=== PATIENT | female | born 1970 | race Caucasian/White ===

== ENCOUNTER 2018-03-28 13:08 | Emergency (ER) | payer OTHER, SELFPAY ==
[2018-03-28 13:34] VITALS: TEMP 98.3
[2018-03-28 15:00] LABS: SQUAMOUS EPITHIAL 3 /hpf (0-5); URINE BILIRUBIN NEGATIVE (NEGATIVE); URINE BLOOD 3+ (NEGATIVE); URINE CLARITY Clear (Clear); URINE COLOR Red (YELLOW); URINE GLUCOSE (UA) NORMAL (Normal); URINE LEUKOCYTE ESTERASE TRACE Leu/uL (Negative); URINE PROTEIN 1+ mg/dL (NEGATIVE); URINE UROBILINOGEN NORMAL mg/dL (0.2-1.0)
[2018-03-28 15:02] LABS: HCG,QUALITATIVE URINE NEGATIVE (NEGATIVE)
[2018-03-28] MEDS ORDERED: Sodium Chloride 0.9% 1,000 ML IV ONE (15:26)
--- NOTE | 2018-03-28 15:31 | C.PDOC ---
History Of Present Illness 47 year old female presents to the ED for evaluation of irregular menstrual period for the past three months. Patient states she started having heavy bleeding yesterday, requiring the use of multiple pads. Patient denies fever, chills, weakness, dizziness, abdominal pain, nausea, vomiting, diarrhea, dysuria. Ambulatory in Ed with stable gait, not in any apparent distress. Time Seen by Provider: 03/28/18 14:33 Chief Complaint (Nursing): Female Genitourinary History Per: Patient History/Exam Limitations: no limitations Onset/Duration Of Symptoms: Days Current Symptoms Are (Timing): Still Present Additional History Per: Patient Abnormal Vaginal Bleeding: Yes Past Medical History Reviewed: Historical Data, Nursing Documentation, Vital Signs Vital Signs: Last Vital Signs Temp 98.3 F 03/28/18 13:31 Pulse 93 H 03/28/18 13:31 Resp 18 03/28/18 13:31 BP 129/86 03/28/18 15:16 Pulse Ox 100 03/28/18 13:31 - Medical History PMH: No Chronic Diseases Surgical History: No Surg Hx Family History: States: Unknown Family Hx - Social History Hx Alcohol Use: No Hx Substance Use: No - Immunization History Hx Tetanus Toxoid Vaccination: No Hx Influenza Vaccination: No Hx Pneumococcal Vaccination: No Review Of Systems Constitutional: Negative for: Fever, Chills Gastrointestinal: Negative for: Nausea, Vomiting, Abdominal Pain, Diarrhea Genitourinary: Positive for: Vaginal Bleeding. Negative for: Dysuria Neurological: Negative for: Weakness, Numbness, Dizziness Physical Exam - Physical Exam Appears: Non-toxic, No Acute Distress Skin: Normal Color, Warm, Dry Head: Normacephalic Eye(s): bilateral: PERRL Nose: No Flaring Oral Mucosa: Moist Neck: Trachea Midline, Supple Cardiovascular: Rhythm Regular, No Murmur, No JVD Respiratory: No Rales, No Rhonchi, No Stridor, No Wheezing Gastrointestinal/Abdominal: Soft, No Tenderness, No Distention, No Guarding, No Rebound Back: No CVA Tenderness Extremity: Normal ROM, Capillary Refill (less than 2 seconds ), No Swelling Neurological/Psych: Oriented x3, Normal Speech ED Course And Treatment - Laboratory Results Result Diagrams: 03/28/18 16:10 03/28/18 16:10 Lab Results: Urine Color Red (YELLOW) 03/28/18 14:43 Urine Clarity Clear (Clear) 03/28/18 14:43 Urine pH 6.0 (5.0-8.0) 03/28/18 14:43 Ur Specific [place] 1.005 (1.003-1.030) 03/28/18 14:43 Urine Protein 1+ mg/dL (NEGATIVE) H 03/28/18 14:43 Urine Glucose (UA) Normal mg/dL (Normal) 03/28/18 14:43 Urine Ketones Negative mg/dL (NEGATIVE) 03/28/18 14:43 Urine Blood 3+ (NEGATIVE) H 03/28/18 14:43 Urine Nitrate Negative (NEGATIVE) 03/28/18 14:43 Urine Bilirubin Negative (NEGATIVE) 03/28/18 14:43 Urine Urobilinogen Normal mg/dL (0.2-1.0) 03/28/18 14:43 Ur Leukocyte Esterase Trace Vahe/uL (Negative) 03/28/18 14:43 Urine WBC (Auto) 5 /hpf (0-5) 03/28/18 14:43 Urine RBC (Auto) 1081 /hpf (0-3) H 03/28/18 14:43 Ur Squamous Epith Cells 3 /hpf (0-5) 03/28/18 14:43 Urine HCG, Qual Negative (NEGATIVE) 03/28/18 14:43 Urine HCG, Qual Negative (NEGATIVE) 03/28/18 14:43 Lab Interpretation: Normal Urine POC: Negative O2 Sat by Pulse Oximetry: 100 (on RA ) Pulse Ox Interpretation: Normal Progress Note: Bloodwork, urinalysis, Pelvic Ultrasound ordered and reviewed. IV Fluids given. Pt was OBS in ED for 2 hours and remained stable. On re-eval, afebrile, heodynamicaly stable. non-toxic. Ambulatory in ED with stable gait. neck: Supple, (-) JVD. CVS: (+)S1S2, reg. Abd: soft, (-) guarding, (-) rebound. back: (-) CVA tenderness. Blood work review, appears normal, no evidence of anemia. UA-normal, preg (-). US results review- no acute abnormalities noted. Pt has clinical findings c/w DUB. Pt advised. ref. to F/u with ACUTE COORDINATOR in 2-3 days for re-evaluation. return to ED if any worsening or new changes. Disposition Counseled Patient/Family Regarding: Studies Performed, Diagnosis, Need For Followup - Disposition [facility] Disposition: HOME/ ROUTINE Disposition Time: 17:34 Condition: STABLE Additional Instructions: Encourage fluids Follow up with ACUTE COORDINATOR in 1-2 days for re-evaluation. return to ED if any worsening or new changes. Instructions: Heavy Periods Forms: [employer] ([place]) Print Language: PORTUGUESE - Clinical Impression Clinical Impression: DUB (dysfunctional uterine bleeding) - PA / LENS CUTTER / Resident Statement MD/DO has reviewed & agrees with the documentation as recorded. - Scribe Statement The provider has reviewed the documentation as recorded by the Scribe (Nohemy Javier) All medical record entries made by the Scribe were at my direction and personally dictated by me. I have reviewed the chart and agree that the record accurately reflects my personal performance of the history, physical exam, medical decision making, and the department course for this patient. I have also personally directed, reviewed, and agree with the discharge instructions and disposition.
[2018-03-28 16:20] LABS: BASO # 0.1 K/uL (0.0-0.2); BASO % 1.4 % (0.0-2.0); EOS # 0.1 K/uL (0.0-0.7); EOS % 0.8 % (0.0-4.0); HEMOGLOBIN 12.9 g/dL (11.0-16.0); LYMPH # 2.7 K/uL (1.0-4.3); MEAN CELL VOLUME 88.9 fL (81.0-99.0); MEAN CORPUSCULAR HEMOGLOBIN 29.3 pg (27.0-31.0); MEAN CORPUSCULAR HGB CONC 32.9 g/dL (33.0-37.0); MEAN PLATELET VOLUME 9.2 fL (7.2-11.7); MONO # 0.4 K/uL (0.0-0.8); MONO % 4.6 % (0.0-10.0); NEUT % 64.2 % (50.0-75.0); NRBC % 0.1 % (0.0-2.0); RBC 4.39 Mil/uL (3.80-5.20); RED CELL DISTRIBUTION WIDTH 14.8 % (11.5-14.5); WHITE BLOOD COUNT 9.3 K/uL (4.8-10.8)
[2018-03-28 16:35] LABS: BLOOD UREA NITROGEN 12 mg/dL (7-17); CALCIUM 9.5 mg/dl (8.6-10.4); GFR NON-AFRICAN AMERICAN > 60
--- NOTE | 2018-03-28 17:48 | US ---
Date of service: 03/28/2018 HISTORY: irreg vag bleeding, weak COMPARISON: None available. TECHNIQUE: Real-time transabdominal pelvic ultrasound was performed. In addition a transvaginal pelvic ultrasound was necessary to better depict pelvic anatomy. FINDINGS: UTERUS: Measures 8.7 x 4.5 x 5.3 cm. Anteverted. ENDOMETRIUM: Measures 6 mm in diameter. CERVIX: Nonspecific small cervical calcifications. RIGHT OVARY: Measures 3.0 x 2.3 x 3.1 cm. Blood flow is demonstrated. 2.6 x 1.8 x 2.4 cm para ovarian cyst. LEFT OVARY: Measures 2.7 x 1.6 x 2.2 cm. Blood flow is demonstrated. FREE FLUID: No significant free fluid noted. OTHER FINDINGS: None. IMPRESSION: 2.6 cm right para ovarian cyst. Nonspecific small cervical calcifications. This examination is predicated on a negative test. Correlate clinically.
[2018-03-28 17:54] VITALS: BP 134/91; PULSE 69; RESP 16; O2SAT 98
== END 2018-03-28 17:54 | disposition home or self-care (01) ==
LOC: C.ER 13:08
DX: N93.8 Other specified abnormal uterine and vaginal bleeding (principal)
CPT/HCPCS: 76830; 76856; 80048; 81001; 84703; 85025; 96360; 99284; J7030